=== PATIENT | female | born 1965 | race Caucasian/White ===

== ENCOUNTER 2024-03-13 12:58 | Emergency (ER) | payer OTHER, SELFPAY ==
[2024-03-13 13:09] VITALS: BP 154/98
--- NOTE | 2024-03-13 15:18 | ED.GENMED ---
History of Present Illness
General
Chief Complaint: Back Pain
Source: patient
Exam Limitations: none
Time Seen by Provider: 03/13/24 14:22
Nursing documentation reviewed up to this point in time: agreed with
History of Present Illness
History of Present Illness:
pt is a 58 y/o F with h/o thyroid cancer, kidney cancer R partial kidney removal, stage 0 breast ca
here with pain in her mid/lower back with breathing whlie she was in the shower
she said it was severe and lasted for a minute and then the pain resolved but she felt very short of breath; wasn't sure if she was having panic attack
and subsequently felt pain in her L neck and L axilla and chest
pt says she still subtly feels pain with deep breathing but it is much better than it was
a few weeks ago she had similar pain but it wasnt' severe and it resolved
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
pt has not had any fever, chills, cough, legs welling
pt did recently drive far a few weeks ago, about 5 horus
sh eis on xraelto but says she sometimes misses doses or takes them late
she has never had DVT/PE
Past History
Past History
ED Past Medical History: GERD and HTN
ED Past Surgical History: Other (partial nephrectomy)
Social History
Personal:
Review of Systems
Review of Systems
Allergies reviewed?: Yes
All Other Systems: Not applicable
Phy Exam
Physical Exam
Physical Exam:
GENERAL: Alert , in no apparent distress
EYE: pupils equal and reactive
NECK: Supple
ENT: o/p clr, mmm.
CARDIAC: Regular rate and rhythm .
LUNGS: Clear breath sounds bilaterally, no acute respiratory distress, no wheezes/rales/rhonchi
back: left back nontender, slight scoliosis; assymetric muscles of herback, R being more prominent
ABDOMEN: Soft, without focal tenderness, no r/g, no cvat, normal bowel sounds
NEUROLOGICAL: Alert and oriented, no focal neuro deficits
SKIN: Warm and dry, skin intact.
MUSCULOSKELETAL: No edema, well perfused. neg rossi's sign
PSYCH: Normal and appropriate interaction.
Course
Orders/Labs/Results
Orders:
Orders
03/13/24 13:02
EKG [Electrocardiogram (*1)] Urgent
Reason for Study: Chest Pain
EKG- Treatment ONCE
03/13/24 14:51
CT Chest Pe Study Urgent
Comment:
Reason For Exam: L pleuritic pain, sob
03/13/24 15:30
Complete Blood Count/With Diff Urgent
Comprehensive Metabolic Panel Urgent
PTT Urgent
Prothrombin Time Urgent
Troponin I Urgent
03/13/24 17:07
EKG- Treatment ONCE
03/13/24 17:46
Acetaminophen [Tylenol] 650 mg PO NOW STA
03/13/24 18:30
Electrocardiogram (*1) Urgent
Reason for Study: Chest Pain
03/13/24 19:23
Troponin I Urgent
03/13/24 15:30
03/13/24 15:30
Vital Signs
Initial and Last Documented VS:
Initial Vital Signs
Temp Pulse Resp BP Pulse Ox
98 F 94 16 154/98 99
03/13/24 13:09 03/13/24 13:09 03/13/24 13:09 03/13/24 13:09 03/13/24 13:09
Last Documented Vital Signs
Temp Pulse Resp BP Pulse Ox
98 F 64 18 119/72 95
03/13/24 13:09 03/13/24 21:00 03/13/24 21:00 03/13/24 21:00 03/13/24 21:00
MDM/Problems Addressed
Differential Diagnosis Includes:
ACS, PE, dissection, msk pain
MDM/Problems Addressed:
58 y/o F with h/o thyroid cancer, kidney cancer treated remotely
htn
PAF on xarelto
here with pleuritic L back pain while showering lasting 1 minute followed by sob and panic and then some mild L upper back/shoulder/and L arm discomffort
she has been mostly compliant with xraelto
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
vitals stable
anxious but well appearing
mild discomfort wtih deep breathing
some muscle asymmetry in the back, seems to be c/w scoliosis
no abdominal tendenress
no rash
ekg with artiface avL nsr, no st elevation/depression
pt pulled up old ekg and i showed both to dr. esparza who thought that this was not much differnet than previous
ct scan neg for PE
1st trop neg
will repeat trop at 630 and likely d/c with msk back pain/muscle spasm pain treatment
*Critical Care Note
Total Time (30-74mins, 75-104mins- exclusive of procedures): Not Applicable
ED Attending Note
-
Portions of this chart may have been created with voice recognition software.� Occasional wrong word or��sound alike� substitutions may have occurred due to the inherent limitations of voice recognition software.
Discharge Plan
Departure
Patient Disposition: Home (Routine Discharge)
Date of Disposition: 03/13/24
Time of Disposition: 20:44
Patient with high blood pressure during this ER visit?: No
Condition: Fair
Covid-19: Not Applicable
Discharge Problem:
Back pain, Pleuritic pain
Instructions: Upper Back Pain (DC)
Prescriptions:
New
metaxalone 400 mg tablet
800 mg PO BID PRN (Reason: muscle pain) Qty: 14 0RF
Referrals:
Velvet Andrade DO [Family Provider] - Follow up in 2-3 days
Activity Restrictions/Additional Instructions:
YOUR SYPMTOMS WERE NOT FOUND TO BE DUE TO AN EMERGENCY TODAY
THERE WAS NO SIGN OF HEART ATTACK OR BLOOD CLOT
YOU SHOULD TRY TYLENOL 2-3 TIMES A DAY FOR A FEW DAYS
YOU CAN ALSO TRY A MUSCLE RELAXANT 2 TIMES A DAY NEEDED
HEAT OFF AND ON
FOLLOW UP WITH [facility] OPERATOR AND YOUR FAMILY DOCTOR THIS WEEKR
ETURN FOR: SEVERE PAIN, WORSE TROUBLE BREATHING, FEVER, COUGH, VOMITING OR ANY CONCERNS.
Interventions
Interventions:
*Risk Screen - Suicide Last Done: 03/13/24 13:09
*General Assessment Last Done: 03/13/24 13:09
*Neglect/Abuse Screening Last Done: 03/13/24 13:09
ED- Fall Risk Assessment Last Done: 03/13/24 14:00
*ED COVID-19 Vaccine History Last Done: 03/13/24 21:23
*Nursing Disposition Last Done: 03/13/24 21:23
ED-Musculoskeletal Assessment Last Done: 03/13/24 14:00
Discharge Date and Time
Discharge Date/Time: 03/13/24 21:30
Print Language: [id number]
[2024-03-13 15:50] LABS: % Basophils 0.4 % (0-2); % Eosinophils 0.6 % (0-6); % Immature Granulocytes 0.3 % (0-0.5); % Lymphocytes 23.5 % (20.5-51.1); % Monocytes 6.4 % (1.7-9.3); % Neutrophils 68.8 % (42.2-75.2); Absolute Eosinophils 0.1 10^3/uL (0-0.7); Absolute Lymphocytes 1.9 10^3/uL (1.2-3.4); Absolute Monocytes 0.5 10^3/uL (0.1-0.6); Absolute Neutrophils 5.5 10^3/uL (1.4-6.5); Hematocrit 40.2 % (37.0-47.0); Hemoglobin 13.6 g/dL (12.0-16.0); Mean Corp Hgb Conc. 33.8 g/dL (33.0-37.0); Mean Corpuscular Hgb 30.4 pg (27.0-31.0); Mean Corpuscular Volume 89.7 fL (81.0-99.0); Mean Platelet Volume 9.3 fL (7.4-10.4); Nucleated Red Blood Cells % 0 %; Platelet Count 202 10^3/uL (130-400); Red Blood Cell Count 4.48 10^6/uL (4.20-5.40); Red Cell Dist. Width 12.6 % (11.5-14.5)
[2024-03-13 16:00] VITALS: BP 136/73
[2024-03-13 16:12] LABS: ALT (SGPT) 32 U/L (0-35); AST (SGOT) 34 U/L (14-36); Albumin 4.4 g/dl (3.5-5.0); Alkaline Phosphatase 71 U/L (38-126); Blood Urea Nitrogen 16 mg/dl (7-17); Calcium 9.5 mg/dl (8.4-10.2); Carbon Dioxide 28 mmol/L (22-30); Chloride 106 mmol/L (98-107); Glucose 89 mg/dl (70-99); Potassium 4.1 mmol/L (3.5-5.1); Sodium 145 mmol/L (135-145); Total Bilirubin 0.4 mg/dl (0.2-1.3); Total Protein 6.7 g/dl (6.3-8.2); eGFR > 60.00
[2024-03-13 16:13] LABS: INR 1.08; PT 13.8 Sec (11.4-14.6)
[2024-03-13 16:14] LABS: APTT 28.3 Sec (23.4-35.0)
[2024-03-13 16:17] LABS: Troponin I < 0.012 ng/ml
[2024-03-13 19:18] VITALS: BP 121/75
[2024-03-13 19:21] VITALS: BP 127/70
[2024-03-13] MEDS: TYLENOL 650 MG PO (19:55)
[2024-03-13 20:00] VITALS: BP 122/71
[2024-03-13 20:01] LABS: Troponin I < 0.012 ng/ml
[2024-03-13 21:00] VITALS: BP 119/72
== END 2024-03-13 21:30 | disposition home or self-care (01) ==
LOC: EMR 12:58
PROVIDERS: Physician Assistant; EMERGENCY PHYSICIAN Emergency Medicine; FAMILY PHYSICIAN Internal Medicine
DX: R07.81 Pleurodynia (principal); M54.2 Cervicalgia; M54.6 Pain in thoracic spine; M54.50 Low back pain, unspecified; R20.2 Paresthesia of skin; K21.9 Gastro-esophageal reflux disease without esophagitis; I48.0 Paroxysmal atrial fibrillation; I10 Essential (primary) hypertension; Z79.01 Long term (current) use of anticoagulants; Z85.3 Personal history of malignant neoplasm of breast; Z85.528 Personal history of other malignant neoplasm of kidney; Z90.5 Acquired absence of kidney
CPT/HCPCS: 99285; 71275; 80053; 84484; 85025; 85610; 85730; 93005; Q9967